=== PATIENT | male | born 1950 | race Caucasian/White ===

== ENCOUNTER 2017-10-20 10:54 | Day surgery (SDC) | payer MEDICARE, BC ==
[~2017-10-20 10:54] MED LIST: Propofol 200 MG/20 ML SDV ONE
[2017-10-20] MEDS ORDERED: Lactated Ringers 1,000 ML IV SCH (11:30)
[2017-10-20] MEDS ORDERED: Sodium Chloride 0.9% 5 ML Syringe FLUSH PRN (11:30)
[2017-10-20] MEDS ORDERED: Propofol 200 MG/20 ML SDV IV ONE (11:54)
--- NOTE | 2017-10-20 11:58 | PCM.PN ---
- General Info Date of Service: 10/20/17 - Review of Systems Systems Review Comment:: 67-year-old male referred for colonoscopy. He has a history of colon polyps with his last colonoscopy being 3 years ago. He is medically stable to proceed today with no recent significant change in his health status. I have discussed the proposed operative procedure with the patient. He agrees to proceed accepting risks. - Patient Data Vitals - Most Recent: Last Vital Signs Temp 97.3 F 10/20/17 11:13 Pulse 67 10/20/17 11:13 Resp 20 10/20/17 11:13 BP 150/103 H 10/20/17 11:13 Pulse Ox 94 L 10/20/17 11:13 Weight - Most Recent: 130.635 kg Med Orders - Current: Current Medications Lactated Ringer's (Ringers, Lactated) 1,000 mls @ 50 mls/hr IV ASDIRECTED [facility] Last Admin: 10/20/17 11:33 Dose: 50 mls/hr Sodium Chloride (Syrex Flush) 5 ml FLUSH Q8HR PRN PRN Reason: Keep Vein Open Discontinued Medications Propofol (Diprivan 20 Ml) Confirm Administered Dose 400 mg .ROUTE .STK-MED ONE Stop: 10/20/17 10:53 - Problem List Review Problem List Initiated/Reviewed/Updated: Yes - My Orders Last 24 Hours: My Active Orders 10/20/17 07:34 Resuscitation Status Routine 10/20/17 11:30 Peripheral IV Care [RC] . DIRECTED Lactated Ringers [Ringers, Lactated] 1,000 ml IV ASDIRECTED Sodium Chloride 0.9% [Syrex Flush] 5 ml FLUSH Q8HR PRN Peripheral IV Insertion Adult [OM.PC] Routine 10/20/17 12:00 Patient to Empty Bladder [RC] ASDIRECTED 10/20/17 12:25 Verify Patient Consent Obtain [RC] ASDIRECTED 10/20/17 Breakfast Nothing Per Oral Diet [DIET] - Assessment Assessment:: History of colon polyps - Plan Plan:: Colonoscopy
--- NOTE | 2017-10-20 12:38 | PCM.OPNOTE ---
- General Post-Op/Procedure Note Date of Surgery/Procedure: 10/20/17 Operative Procedure(s): Colonoscopy with Polypectomy Findings: Small Colon Polyp Moderate Sigmoid Diverticulosis Pre Op Diagnosis: History of Colon Polyps Post-Op Diagnosis: Colon Polyp. Diverticulosis Anesthesia Technique: MAC Primary Surgeon: Rubin Baez Pathology: Descending Colon Polyp Output, Urine Amount: 0 EBL in mLs: 0 Complications: None Condition: Good
[2017-10-20 13:06] VITALS: BP 145/85
--- NOTE | 2017-10-21 01:25 | OR ---
DATE OF SURGERY: 10/20/2017 SURGEON: Rubin Baez MD PREOPERATIVE DIAGNOSIS: History of colon polyps. POSTOPERATIVE DIAGNOSIS: Colon polyp, diverticulosis. OPERATION PERFORMED: Colonoscopy with polypectomy. INDICATIONS FOR SURGERY: A 67-year-old male has a known history of colon polyps and comes today for surveillance colonoscopy. FINDINGS: A single polyp was noted on today's exam. It was in the descending colon 50 cm from the anal verge. The polyp was a sessile polyp 5 mm in size. The patient had a moderate degree of sigmoid diverticulosis which did not appear acutely inflamed or otherwise complicated. The remainder of the colon appeared normal. PROCEDURE: The patient was taken to the operating room. He was given intravenous sedation, and with him in the left lateral decubitus position, digital rectal exam was performed showing no rectal masses. The Olympus colonoscope was inserted into the rectum. Retroflexed examination of the rectal canal was performed. The scope was then carefully advanced under direct visualization up to the descending colon where the above-described polyp was identified. This was removed with a cautery snare and retrieved into a polyp trap. The scope was then further advanced through the remainder of the colon until the cecum was reached. This did require some hand pressure, but eventually the cecum was cannulated and carefully examined. The ileocecal valve and appendiceal orifice were identified. The scope was then slowly withdrawn sequentially re-examining the colonic segments until the entire colon and rectum had been fully examined. The scope was removed and the patient was taken from the operating room in satisfactory condition. ESTIMATED BLOOD LOSS: Zero. COMPLICATIONS: None. PROGNOSIS: Good. /[id number]/MODL
== END 2017-10-20 14:10 | disposition home or self-care (01) ==
LOC: KA.SDS 10:54
PROVIDERS: ATTEND Surgery
DX: Z12.11 Encounter for screening for malignant neoplasm of colon (principal); D12.4 Benign neoplasm of descending colon; K57.30 Diverticulosis of large intestine without perforation or abscess without bleeding; E66.01 Morbid (severe) obesity due to excess calories; Z68.41 Body mass index [BMI] 40.0-44.9, adult; E78.5 Hyperlipidemia, unspecified; N40.0 Benign prostatic hyperplasia without lower urinary tract symptoms; Z86.010 Personal history of colon polyps; Z87.891 Personal history of nicotine dependence; Z79.82 Long term (current) use of aspirin; Z79.899 Other long term (current) drug therapy; Z80.0 Family history of malignant neoplasm of digestive organs
CPT/HCPCS: 00812; 45385; J2704; J7120; 88305

== ENCOUNTER 2018-09-09 01:06 | Emergency (ER) | payer MEDICARE, BC ==
[2018-09-09 01:16] VITALS: BP 159/122
--- NOTE | 2018-09-09 01:19 | EDM.PDOC ---
ED HPI GENERAL MEDICAL PROBLEM - General Chief Complaint: Gastrointestinal Problem Stated Complaint: RECTAL BLEEDING Time Seen by Provider: 09/09/18 01:14 Source of Information: Reports: Patient History Limitations: Reports: No Limitations - History of Present Illness INITIAL COMMENTS - FREE TEXT/NARRATIVE: Patient is a 68-year-old gentleman who presents to the emergency department this morning with a complaint of rectal bleeding. States that 10 days ago He underwent hemorrhoidal banding by Dr. Vicente. Course has been uneventful. Patient states that he is currently on stool softeners, and has had no issues with bleeding. Patient states approximately midnight this evening , he was using the bathroom and stool was described as firm and he noticed blood in the toilet and also when he wiped He noticed bright red blood. Patient decided to proceed to emergency department. Patient denies fever, nausea, vomiting, diarrhea, abdominal pain, or anticoagulation therapy. Onset: Today, Sudden Onset Date: 09/09/18 Onset Time: 00:00 Location: Reports: Other (Rectal) Severity: Mild Improves with: Reports: None Worsens with: Reports: None Associated Symptoms: Reports: No Other Symptoms - Related Data Allergies Allergy/AdvReac Type Severity Reaction Status Date / Time No Known Allergies Allergy Verified 09/09/18 01:12 ED ROS GENERAL - Review of Systems Review Of Systems: ROS reveals no pertinent complaints other than HPI. Constitutional: Reports: No Symptoms HEENT: Reports: No Symptoms Respiratory: Reports: No Symptoms Cardiovascular: Reports: No Symptoms Endocrine: Reports: No Symptoms GI/Abdominal: Reports: Bloody Stool : Reports: No Symptoms Musculoskeletal: Reports: No Symptoms Skin: Reports: No Symptoms Neurological: Reports: No Symptoms Psychiatric: Reports: No Symptoms Hematologic/Lymphatic: Reports: No Symptoms Immunologic: Reports: No Symptoms ED EXAM, GI/ABD - Physical Exam Exam: See Below Exam Limited By: No Limitations General Appearance: Alert, WD/WN, No Apparent Distress Nose: Normal Inspection, No Blood Throat/Mouth: Normal Inspection, Normal Oropharynx, No Airway Compromise Respiratory/Chest: No Respiratory Distress Cardiovascular: Regular Rate, Rhythm, No Murmur GI/Abdominal Exam: Normal Bowel Sounds, Soft, Non-Tender Rectal (Males) Exam: Other (Hemorrhoidal banding site hemostatic.) Back Exam: Normal Inspection. No: CVA Tenderness (L), CVA Tenderness (R) Extremities: Normal Inspection Neurological: Alert, Oriented, Normal Cognition Psychiatric: Normal Affect, Normal Mood Skin Exam: Warm, Dry, Intact, Normal Color, No Rash Course - Re-Assessments/Exams Free Text/Narrative Re-Assessment/Exam: 09/09/18 01:20 Patient afebrile, vital signs stable. Hemostasis maintained and 4 x 4 placed in buttock cleft. Patient instructed procedure if bleeding continues. Patient will follow-up with Dr. Lawson on Thursday and Dr. Vicente next week. Departure - Departure Time of Disposition: 01:22 Disposition: Home, Self-Care 01 Condition: Good Clinical Impression: History of hemorrhoids, Rectal bleeding - Discharge Information Instructions: Rectal Bleeding, [id number], Surgical Procedures for Hemorrhoids, Care After Referrals: Amira Fowler MD [Physician] - Forms: ED Department Discharge Additional Instructions: Follow-up with Dr. Lawson on Thursday. Contact Dr. Gibson's office for appointment next week. Use gauze pads as needed. Continue stool softeners and not to force stool. - Assessment/Plan Assessment:: Hemorrhoidal bleeding Plan: Follow-up with Dr. Lawson
== END 2018-09-09 01:33 | disposition home or self-care (01) ==
LOC: MERGE 01:06 → KA.ED 01:06
DX: K64.8 Other hemorrhoids (principal)
CPT/HCPCS: 99283

== ENCOUNTER 2019-03-31 09:00 | Inpatient (IN) | payer MEDICARE, BC ==
[2019-03-31] MEDS: Furosemide 40 MG/4 ML VIAL IVPUSH SCH ×2 (14:52→16:04)
[2019-03-31 15:06] LABS: ANION GAP 6.8 mmol/L (5-15); CHLORIDE,CL 103 mmol/L (98-115); SODIUM,NA 140 mmol/L (136-145)
[2019-03-31] MEDS: Aspirin 81 MG Tab.EC*PT OWN MED PO SCH (20:38)
[2019-03-31] MEDS: ATORVASTATIN 20 MG PO SCH (20:38)
[2019-03-31] MEDS: Tamsulosin 0.4 MG Cap.ER*PT OWN MED PO SCH (20:38)
[2019-03-31] MEDS ORDERED: atorvaSTATin 10 MG Tab PO SCH (21:00)
[2019-03-31] MEDS ORDERED: Melatonin 3 MG Tab PO PRN (22:00)
[2019-04-01 08:09] LABS: ANION GAP 8.4 mmol/L (5-15); CHLORIDE,CL 101 mmol/L (98-115); SODIUM,NA 140 mmol/L (136-145)
[2019-04-01] MEDS: Furosemide 40 MG/4 ML VIAL IVPUSH SCH ×2 (08:33→17:16)
[2019-04-01] MEDS: Sodium Chloride 0.9% 10 ML Syringe FLUSH PRN ×3 (08:36→17:16)
[2019-04-01] MEDS ORDERED: Aspirin 81 MG Tab.EC PO SCH (09:00)
[2019-04-01] MEDS ORDERED: Tamsulosin 0.4 MG Cap.ER PO SCH (09:00)
[2019-04-01] MEDS: cefTRIAXone 1 GM Vial IVPUSH SCH (10:02)
[2019-04-01] MEDS: Aspirin 81 MG Tab.EC*PT OWN MED PO SCH (22:42)
[2019-04-01] MEDS: Tamsulosin 0.4 MG Cap.ER*PT OWN MED PO SCH (22:42)
[2019-04-01] MEDS: ATORVASTATIN 20 MG PO SCH (22:42)
[2019-04-01] MEDS ORDERED: Zolpidem 5 MG Tab PO ONE (23:00)
[2019-04-02 08:03] LABS: ANION GAP 12.8 mmol/L (5-15); CHLORIDE,CL 100 mmol/L (98-115); SODIUM,NA 143 mmol/L (136-145)
[2019-04-02] MEDS ORDERED: Metolazone 2.5 MG Tab PO ONE (09:35)
[2019-04-02] MEDS: cefTRIAXone 1 GM Vial IVPUSH SCH (09:38)
[2019-04-02] MEDS: Furosemide 40 MG/4 ML VIAL IVPUSH SCH ×2 (09:38→17:07)
[2019-04-02] MEDS: Tamsulosin 0.4 MG Cap.ER*PT OWN MED PO SCH (21:40)
[2019-04-02] MEDS: ATORVASTATIN 20 MG PO SCH (21:40)
[2019-04-02] MEDS: Aspirin 81 MG Tab.EC*PT OWN MED PO SCH (21:40)
[2019-04-02] MEDS: Zolpidem 5 MG Tab PO SCH (23:23)
[2019-04-03 07:56] LABS: ANION GAP 10.9 mmol/L (5-15); CHLORIDE,CL 97 mmol/L (98-115); SODIUM,NA 138 mmol/L (136-145)
[2019-04-03] MEDS: Furosemide 40 MG/4 ML VIAL IVPUSH SCH (08:39)
[2019-04-03] MEDS: cefTRIAXone 1 GM Vial IVPUSH SCH (08:39)
[2019-04-03] MEDS ORDERED: Bumetanide 1 MG/4 ML MDV IVPUSH SCH (09:17)
[2019-04-03] MEDS: Potassium Chloride 20 MEQ Tab.ER PO SCH (10:39)
[2019-04-03] MEDS: Bumetanide 1 MG/4 ML MDV IVPUSH SCH (17:04)
[2019-04-03] MEDS: Aspirin 81 MG Tab.EC*PT OWN MED PO SCH (21:41)
[2019-04-03] MEDS: Tamsulosin 0.4 MG Cap.ER*PT OWN MED PO SCH (21:42)
[2019-04-03] MEDS: ATORVASTATIN 20 MG PO SCH (21:42)
[2019-04-03] MEDS: Zolpidem 5 MG Tab PO SCH (23:30)
[2019-04-04 08:25] LABS: ANION GAP 14.3 mmol/L (5-15); CHLORIDE,CL 93 mmol/L (98-115); SODIUM,NA 141 mmol/L (136-145)
--- NOTE | 2019-04-04 08:56 | PN ---
04/01/2019 PATIENT NAME: RAVI ELLER SUBJECTIVE: This is a 68-year-old male who was admitted to the hospital yesterday with failure of outpatient diuretic therapy for edema of his lower extremities. He has had this lower extremity edema for quite some time. He has actually had a 20-pound weight gain since his last clinic visit. He also had a low oxygen saturation in the clinic of 90%. He has had numerous investigative studies performed to try to determine the etiology of the lower extremity edema, including echocardiogram, venous ultrasound bilateral lower extremities, and CT of the abdomen and pelvis, all which have been normal. The patient is morbidly obese with a BMI of 49. The patient has been treated with intravenous Lasix and has diuresed 5 pounds since admission. Concerning for him as an elevated white blood cell count of 10,000 yesterday and 11,000 today. There is no left shift. He does have erythema of the lower extremities, which is possibly an early cellulitis. LABORATORY DATA: Other lab data from today; CMP shows a normal alkaline phosphatase of 121. Glucose of 110. BUN and creatinine are normal. Liver function tests are basically normal. OBJECTIVE: VITAL SIGNS: On examination, temp is 97.3, pulse 86, respirations 20, blood pressure 127/71, O2 saturation is 92% on room air. SKIN: Warm and dry to touch. HEART: Normal. LUNGS: Normal. ABDOMEN: Obese, nontender. Bowel sounds present in all four quadrants. EXTREMITIES: He does have bilateral pedal edema which is nonpitting in nature. It does extend up to just below the knees. He does not have compression stockings on at this time. He does have erythema of both lower extremities. IMPRESSION: 1. Bilateral lower extremity edema, slightly improved from yesterday with a 5- pound weight gain with IV furosemide. 2. Cellulitis of bilateral lower extremities with the left being greater than the right. He was started on Rocephin 1 g IV daily. PLAN: Possible discharge tomorrow, but more realistically on Thursday. He does have daily labs including CBC and CMP. We will continue to follow. /[id number]/MODL
--- NOTE | 2019-04-04 09:05 | PN ---
04/02/2019 PATIENT NAME: RAVI ELLER SUBJECTIVE: This is a 68-year-old male who was admitted to the hospital on 03/31/2019 with lower extremity edema. This has been a long-standing problem for the patient. He has failed outpatient treatment with oral diuretics. He had had a 20-pound weight gain since his last clinic visit. Noted also that his oxygen saturations in the clinic on the day of admission were 90%. Several investigative studies have been performed to determine the etiology of the lower extremity edema, including an echocardiogram, venous ultrasound of bilateral lower extremities as well as a CT of the abdomen and pelvis, all of which have been normal/negative. The patient is taking a daily aspirin. He has hypercholesterolemia and is taking atorvastatin. He has BPH and is taking tamsulosin. He takes stool softener on a daily basis for periodic constipation. He had trouble sleeping last night. He had tried melatonin the night before and this was ineffective. He was given a one time dose of Ambien 10 mg last night and he said he "slept like a rock." He did have a delusion in the middle of the night that they were doing some dental work in the hallway and ended up coming out into the hallway, but was redirected back to bed without any incident. His lab work today shows a white count of 12.24. His admission white count was 10.54. The etiology of this is very unclear to me. I did start him on 1 g Rocephin on a daily basis starting yesterday. The remainder of his lab results are fairly good. His potassium is holding its own at 4.1. Renal function is good with a BUN of 17 and a creatinine of 0.87 with a GFR of greater than 60. Alkaline phosphatase is elevated at 122. His admission weight was 323 pounds. His weight today is 316 pounds for a net weight loss of 7 pounds. OBJECTIVE: VITAL SIGNS: Temp is 97.4, pulse 100, respirations 20, blood pressure 137/85, oxygen saturation is 90% on room air. SKIN: Warm and dry to touch. CARDIAC: Reveals S1, S2 to be normal. Rate and rhythm are regular. No murmur, click, or gallop is auscultated. LUNGS: Clear. ABDOMEN: Soft, nontender with positive bowel sounds. He is quite obese. EXTREMITIES: He does have edema to the lower extremities, which is possibly just a trace improved from when he was admitted. He does have a positive posterior pedal and dorsalis pedis pulses. The edema is nonpitting. There is a mild erythema of both lower extremities with the left looking worse than the right. IMPRESSION: 1. Lower extremity edema. He has shown little improvement with 40 mg of IV Lasix b.i.d. We will give him a one time dose of Zaroxolyn today to help mobilize some of this lower extremity edema. I did appliance counselor him that I thought that he should be up walking around a little bit more rather than just sitting in a chair. 2. Cellulitis with leukocytosis. I am unclear why his white count is elevated. He has been afebrile. Possibly, this may be a chronic thing. He is covered with Rocephin 1 g IV daily. 3. Hypercholesterolemia, stable. 4. Benign prostatic hyperplasia, stable. 5. Insomnia. He may have Ambien 10 mg daily at bedtime. PLAN: The plan is to keep him at least one more day. He will have to change his admission status from observation to inpatient at this time. /[id number]/MODL
--- NOTE | 2019-04-04 09:05 | PN ---
04/03/2019 PATIENT NAME: RAVI ELLER HISTORY OF PRESENT ILLNESS: This is a 68-year-old male who was admitted to the hospital on 03/31/2019 for lower extremity edema. He has been treated with IV furosemide. The results have been positive, but slow. He received a one time dose of metolazone yesterday with only an additional 2-pound weight loss. He has had a total weight loss of 9 pounds. Echocardiogram, venous ultrasound, and abdomen and pelvis CT performed on an outpatient basis were all normal/negative. His labs have been stable and acceptable with the exception of a white blood cell count elevation, etiology unclear. It was felt that he had some cellulitis associated with the lower extremity edema. He has no ulcerations. He is being treated with ceftriaxone 1 g IV on a daily basis. Potassium has stayed stable at 4.0 on admission and now is down to 3.6. PHYSICAL EXAMINATION: VITAL SIGNS: Temp is 97.3, pulse 85, respirations 20, blood pressure 131/84, O2 saturation is 90% on room air. SKIN: Warm and dry to touch. CARDIAC: Reveals S1, S2 to be normal. Rate and rhythm are regular. No murmur, click, or gallop is auscultated. LUNGS: Clear without rales, wheezes, or rhonchi. ABDOMEN: Soft, obese, nontender. Bowel sounds present in all 4 quadrants. EXTREMITIES: He does have nonpitting edema in his lower extremities with some erythema of both lower extremities with the left being worse than the right. IMPRESSION: 1. Lower extremity edema, somewhat improved, however, slow improvement. I have sent a text message to Dr. Amira Rosado for her suggestion for treatment. I was going to discharge the patient today; however, I do not believe that would be in his best interest. I am thinking possibly of increasing his Lasix to 80 mg b.i.d. and then adding another dose of metolazone today. This will undoubtedly cause hypokalemia, so we will replace potassium. 2. Cellulitis. This seems to be improving slowly as well. We will continue ceftriaxone 1 g IV daily. /[id number]/MODL
[2019-04-04] MEDS: cefTRIAXone 1 GM Vial IVPUSH SCH (09:18)
[2019-04-04] MEDS: Sodium Chloride 0.9% 10 ML Syringe FLUSH PRN ×2 (09:23→11:23)
[2019-04-04] MEDS ORDERED: Trolamine Salicylate/Aloe Vera 10% Crm 85 GM Tube TOP PRN (10:34)
[2019-04-04] MEDS: Potassium Chloride 20 MEQ Tab.ER PO SCH (10:51)
[2019-04-04] MEDS: Bumetanide 1 MG/4 ML MDV IVPUSH SCH ×3 (11:05→17:00)
[2019-04-04] MEDS: Potassium Bicarbonate 25 MEQ Tab.EFF PO SCH ×2 (11:30→21:13)
--- NOTE | 2019-04-04 11:47 | PN ---
04/04/2019 PATIENT NAME: MANE REDDY SUBJECTIVE: Mane Reddy is a 68-year-old male who was admitted to the hospital on 03/31/2019 with lower extremity edema and cellulitis of the lower extremities as well. He has had several investigative studies done prior to admission on an outpatient basis including echocardiogram, venous Doppler studies, and an abdomen and pelvis CT. All of these were normal/negative. Initially, we treated him with Lasix 40 mg b.i.d. intravenously. He really did not respond very effectively at all with the Lasix. We did add a dose of metolazone on 04/02/2019, which only yielded a 2-pound additional weight loss. Yesterday, I consulted with Dr. Amira Fowler, Internal Medicine, regarding any suggestions for alternative medications. She recommended Bumex 5 mg b.i.d. IV. The patient's potassium was 3.6 yesterday and I did expect that it would go lower with the IV Bumex, so he was started on oral potassium supplementation yesterday. His admission weight was 323. Yesterday, his weight was 314, and today, it is 307 for a net weight loss of 7 pounds overnight. The pharmacist has questioned the dose of Bumex. I think since we have gotten such a good result with that, I think we will continue the 5 mg of IV Bumex. We will increase his potassium supplementation to 20 mEq b.i.d. PHYSICAL EXAMINATION: VITAL SIGNS: Temp is 97.6, pulse 97, respirations 22, blood pressure 125/80, O2 saturation is 98% on room air. His weight today is 307 pounds. SKIN: Warm and dry to touch. HEART: Normal. LUNGS: Normal. ABDOMEN: Obese, nontender. Bowel sounds present in all four quadrants. EXTREMITIES: He does have 2+ nonpitting edema in his lower extremities, however, this has improved considerably overnight. IMPRESSION: 1. Bilateral lower extremity edema, improving now with intravenous Bumex. 2. Cellulitis. We will continue ceftriaxone. He does have leukocytosis that is unclear as far as an etiology. The patient has been afebrile the entire time he has been in the hospital. 3. Hypokalemia. This is undoubtedly secondary to diuretics therapy. He will be replaced orally 20 mEq with effervescent potassium b.i.d. PLAN: To discharge tomorrow with oral Bumex and follow closely as an outpatient. /[id number]/MODL
[2019-04-04] MEDS: Zolpidem 5 MG Tab PO SCH (21:12)
[2019-04-04] MEDS: Aspirin 81 MG Tab.EC*PT OWN MED PO SCH (21:13)
[2019-04-04] MEDS: Tamsulosin 0.4 MG Cap.ER*PT OWN MED PO SCH (21:14)
[2019-04-04] MEDS: ATORVASTATIN 20 MG PO SCH (21:14)
[2019-04-05 06:05] VITALS: BP 119/71; PULSE 94
[2019-04-05 07:39] LABS: ANION GAP 8.3 mmol/L (5-15); CHLORIDE,CL 94 mmol/L (98-115); SODIUM,NA 137 mmol/L (136-145)
[2019-04-05] MEDS: Potassium Bicarbonate 25 MEQ Tab.EFF PO SCH (08:52)
[2019-04-05] MEDS: cefTRIAXone 1 GM Vial IVPUSH SCH (08:52)
[2019-04-05] MEDS: Bumetanide 1 MG/4 ML MDV IVPUSH SCH (10:50)
--- NOTE | 2019-04-05 13:47 | DISCH ---
HOSPITAL COURSE: This is a 68-year-old male who was admitted to the hospital on 03/31/2019 with edema in both lower extremities. He was initially treated with Lasix, however, did not have very good results from the Lasix. He was given a one time dose of metolazone on 04/02/2019, which really did not yield too much more weight loss, just 2 pounds. We switched him to Bumex as suggested by my colleague, Dr. Amira Lawson and he did respond extremely well with a 7-pound weight loss after two doses of IV Bumex. His potassium did go from 4.1 to 3.1, as expected. He was placed on potassium supplementation. Yesterday, he only received one dose of IV Bumex. Potassium yesterday afternoon was 3.2. Today is 3.1. He has actually gained 1 pound over the course of the last 24 hours. I believe that this is probably his dry weight at this time. The patient is quite motivated to follow a weight loss diet. He has had a net weight loss of 10 pounds during his hospitalization. He does have leukocytosis, etiology unclear. His admission white count was 12,000. Today is 14,000. He does not have any fever or any other signs of sepsis. He has had cellulitis of the lower extremity secondary to the lower extremity edema. He has been treated with Rocephin as an inpatient but will not need any antibiotics as an outpatient. All other lab values are basically normal. PHYSICAL EXAMINATION: VITAL SIGNS: Temp is 97.7, pulse 94, respirations 20, blood pressure 119/71, O2 saturation is 92% on room air. SKIN: Warm and dry to touch. HEART: Normal. LUNGS: Normal. ABDOMEN: Obese, soft, nontender. Bowel sounds present in all four quadrants. He does have some lower extremity edema, which is greatly improved. There is some erythema, however, this is possibly just the norm for him. The erythema to the lower extremities has improved. He has no ulcerations. FINAL/DISCHARGE DIAGNOSES: 1. Lower extremity edema, which is improved with Bumex. He will be sent home on Bumex 1 mg daily. 2. Cellulitis. This is resolved. He will need no further antibiotics on discharge. 3. Hypokalemia. This is secondary to diuretics undoubtedly. He will be sent home with a prescription for effervescent potassium 25 mEq daily. 4. He does have BPH and will continue on tamsulosin. 5. Obesity. He is motivated to lose weight. He has been okayed for [facility]. 6. Hypercholesterolemia, stable. 7. He is on daily aspirin therapy. The patient was instructed to stop taking furosemide at home. This is replaced with Bumex. He will follow up with me in the clinic on 04/11/2019. At that time, CBC as well as a BMP (basic metabolic panel) will be drawn. We will follow him closely and adjust his Bumex accordingly to the lower extremity edema, being cautious in regard to his potassium. /[id number]/MODL
== END 2019-04-05 11:00 | disposition home or self-care (01) | DRG 948 ==
LOC: KA.MS 09:00 → OBSVTOIN 04-02 09:00
DX: R60.0 Localized edema (principal); L03.116 Cellulitis of left lower limb; E66.01 Morbid (severe) obesity due to excess calories; Z68.42 Body mass index [BMI] 45.0-49.9, adult; L03.115 Cellulitis of right lower limb; E87.6 Hypokalemia; N40.0 Benign prostatic hyperplasia without lower urinary tract symptoms; K59.00 Constipation, unspecified; Z87.891 Personal history of nicotine dependence; E78.00 Pure hypercholesterolemia, unspecified; G47.00 Insomnia, unspecified; D72.829 Elevated white blood cell count, unspecified; Z79.82 Long term (current) use of aspirin; Z79.899 Other long term (current) drug therapy
CPT/HCPCS: 36415; 80048; 80053; 84132; 85025; 96374; 96375; 96376; A9270-GY; G0378; J0696; J1940; J3490

== ENCOUNTER 2021-02-05 08:26 | Day surgery (SDC) | payer MEDICARE, BC ==
[2021-02-05] MEDS ORDERED: Sodium Chloride 0.9% 10 ML Syringe FLUSH PRN (09:00)
[2021-02-05] MEDS: Lactated Ringers 1,000 ML IV SCH (09:40)
[2021-02-05] MEDS ORDERED: Midazolam 1 MG/ML 2 ML SDV ONE (09:53)
[2021-02-05] MEDS ORDERED: Propofol 200 MG/20 ML SDV ONE (09:53)
--- NOTE | 2021-02-05 09:56 | PCM.PN ---
- General Info Date of Service: 02/05/21 - Review of Systems Systems Review Comment:: 70-year-old male with history of colon polyps here for surveillance colonoscopy. He is medically stable to proceed today. His recent history and physical is reviewed and no significant changes are noted. I have discussed the proposed colonoscopy with the patient. Risks and expectations discussed and he agrees to proceed. - Patient Data Med Orders - Current: Current Medications Lactated Ringer's (Ringers, Lactated) 1,000 mls @ 50 mls/hr IV ASDIRECTED [facility]OS Last Admin: 02/05/21 09:40 Dose: 50 mls/hr Documented by: Sodium Chloride (Sodium Chloride 0.9% 10 Ml Syringe) 10 ml FLUSH Q8HR PRN PRN Reason: keep vein open - Problem List Review Problem List Initiated/Reviewed/Updated: Yes - My Orders Last 24 Hours: My Active Orders 02/04/21 14:13 Resuscitation Status Routine 02/05/21 Breakfast Nothing Per Oral Diet [DIET] 02/05/21 09:00 Patient to Empty Bladder [RC] ASDIRECTED Peripheral IV Care [RC] . DIRECTED Lactated Ringers [Ringers, Lactated] 1,000 ml IV ASDIRECTED Sodium Chloride 0.9% [Saline Flush] 10 ml FLUSH Q8HR PRN Peripheral IV Insertion Adult [OM.PC] Routine 02/05/21 09:45 Verify Patient Consent Obtain [RC] ASDIRECTED - Assessment Assessment:: History of colon polyps - Plan Plan:: Colonoscopy
--- NOTE | 2021-02-05 10:31 | PCM.OPNOTE ---
- General Post-Op/Procedure Note Date of Surgery/Procedure: 02/05/21 Operative Procedure(s): Colonoscopy with polypectomy Findings: Small transverse colon polyp Moderate sigmoid diverticulosis Moderate internal hemorrhoids Pre Op Diagnosis: History of colon polyps Post-Op Diagnosis: Colon polyps. Diverticulosis. Hemorrhoids Anesthesia Technique: MAC Primary Surgeon: Rubin Baez Pathology: Colon polyp EBL in mLs: 0 Complications: None Condition: Good
[2021-02-05 10:39] VITALS: BP 152/82; PULSE 65
--- NOTE | 2021-02-05 11:16 | OR ---
DATE OF SURGERY: 02/05/2021 SURGEON: Rubin Baez MD PREOPERATIVE DIAGNOSIS: History of colon polyps. POSTOPERATIVE DIAGNOSIS: Colon polyp, sigmoid diverticulosis, and hemorrhoids. OPERATION PERFORMED: Colonoscopy with polypectomy. INDICATIONS FOR SURGERY: This 70-year-old male has a known history of colon polyps and comes today for surveillance colonoscopy. FINDINGS: A single polyp was noted on today's exam. This is a 5 mm flat polyp in the mid transverse colon. The patient also has a moderate degree of diverticulosis in the sigmoid region, which does not appear to be acutely inflamed or otherwise complicated. He also has moderate-sized internal hemorrhoids. DESCRIPTION OF PROCEDURE: The patient was taken to the operating room. He was given intravenous sedation, and with him in the left lateral decubitus position, digital rectal exam was performed showing no rectal masses. The Olympus colonoscope was inserted into the rectum. Retroflexed examination of the rectal canal was performed. The scope was then carefully advanced under direct visualization through the entire length of the colon until the cecum was reached. Cecal acquisition was confirmed by noting the normal internal cecal anatomy including the appendiceal orifice and the ileocecal valve. After examining the cecum, the scope was slowly withdrawn sequentially re-examining the colonic segments. In the transverse colon, the above-described polyp was identified. This was removed grossly in its entirety with multiple bites of the cold biopsy forceps. The examination was then completed, and after the entire colon and rectum had been fully examined, the scope was removed. The patient was then taken from the operating room in satisfactory condition. ESTIMATED BLOOD LOSS: Zero. COMPLICATIONS: None. PROGNOSIS: Good. /[id number]/MODL
== END 2021-02-05 11:44 | disposition home or self-care (01) ==
LOC: KA.SDS 08:26
PROVIDERS: ATTEND Surgery
DX: Z12.11 Encounter for screening for malignant neoplasm of colon (principal); D12.3 Benign neoplasm of transverse colon; K57.30 Diverticulosis of large intestine without perforation or abscess without bleeding; K64.8 Other hemorrhoids; E66.9 Obesity, unspecified; N40.1 Benign prostatic hyperplasia with lower urinary tract symptoms; R35.1 Nocturia; Z79.82 Long term (current) use of aspirin; Z79.899 Other long term (current) drug therapy; Z98.890 Other specified postprocedural states; Z87.891 Personal history of nicotine dependence; Z68.37 Body mass index [BMI] 37.0-37.9, adult
CPT/HCPCS: 00812; J2250; J2704; J7120

== ENCOUNTER 2024-03-15 07:56 | Day surgery (SDC) | payer MEDICARE ==
[2024-03-15] MEDS ORDERED: Sodium Chloride 0.9% 10 ML Syringe FLUSH PRN (08:00)
[2024-03-15] MEDS: Lactated Ringers 1,000 ML IV SCH (08:25)
[2024-03-15] MEDS ORDERED: Propofol 200 MG/20 ML SDV ONE (08:43)
[2024-03-15] MEDS ORDERED: Midazolam 1 MG/ML 2 ML SDV ONE (08:43)
[2024-03-15 14:28] VITALS: BP 125/72; PULSE 68
== END 2024-03-15 11:28 | disposition home or self-care (01) ==
LOC: KA.SDS 07:56
PROVIDERS: ATTEND Surgery
DX: Z12.11 Encounter for screening for malignant neoplasm of colon (principal); D12.2 Benign neoplasm of ascending colon; K57.30 Diverticulosis of large intestine without perforation or abscess without bleeding; K64.9 Unspecified hemorrhoids; Z86.0100 Personal history of colon polyps, unspecified; E66.9 Obesity, unspecified; Z68.41 Body mass index [BMI] 40.0-44.9, adult; Z79.82 Long term (current) use of aspirin; Z79.899 Other long term (current) drug therapy
CPT/HCPCS: 00811; J2250; J2704; J3490; J7120

== ENCOUNTER 2025-02-01 08:35 | Emergency (ER) | payer MEDICARE ==
[2025-02-01] MEDS ORDERED: Sodium Chloride 0.9% 10 ML Syringe FLUSH PRN (08:52)
[2025-02-01 08:56] LABS: BASOPHILS ABSOLUTE AUTO 0.05 10^3/uL (0.00-0.10); BASOPHILS PERCENT AUTO 0.4 % (0.0-1.0); EOSINOPHILS ABSOLUTE AUTO 0.04 10^3/uL (0.10-0.30); EOSINOPHILS PERCENT AUTO 0.3 % (1.0-3.0); IMMATURE GRAN ABSOLUTE AUTO 0.05 10^3/uL (0.00-0.04); IMMATURE GRAN PERCENT AUTO 0.4 % (0.0-0.4); LYMPHOCYTES ABSOLUTE AUTO 0.78 10^3/uL (1.00-4.00); LYMPHOCYTES PERCENT AUTO 6.6 % (20.0-40.0); MEAN PLATELET VOLUME 9.3 fL (7.4-10.4); MONOCYTES ABSOLUTE AUTO 0.95 10^3/uL (0.10-0.80); MONOCYTES PERCENT AUTO 8.0 % (2.0-8.0); NEUTROPHILS ABSOLUTE AUTO 9.99 10^3/uL (2.50-7.00); NEUTROPHILS PERCENT AUTO 84.3 % (50.0-70.0); PLATELET COUNT,PLT 195 10^3/uL (150-400); RED BLOOD CELL COUNT 4.31 10^6/uL (4.50-6.00); RED CELL DISTRIBUTION WIDTH 13.2 % (11.5-14.5); WHITE BLOOD CELL COUNT,WBC 11.86 10^3/uL (5.00-10.00)
[2025-02-01] MEDS: Lactated Ringers 1,000 ML IV ONE (09:10)
[2025-02-01 09:12] LABS: ALANINE AMINOTRANSFERASE,ALT 417 U/L (14-63); ASPARTATE AMNIOTRANSFERASE,AST 383 U/L (15-37); BILIRUBIN TOTAL 1.9 mg/dL (0.2-1.0); BLOOD UREA NITROGEN,BUN 23 mg/dL (7-18); CARBON DIOXIDE,CO2 29.3 mmol/L (21.0-32.0); CHLORIDE,CL 103 mmol/L (98-107); CREATININE 0.72 mg/dL (0.51-1.17); EST CRCL DRUG DOSING (CG) 84.16 mL/min; GLUCOSE RANDOM 141 mg/dL (70-140); POTASSIUM,K 4.0 mmol/L (3.5-5.1); PROTEIN TOTAL,TP 6.1 g/dL (6.4-8.2); SODIUM,NA 137 mmol/L (136-145)
[2025-02-01 09:17] LABS: ESTIMATED GFR 96 mL/min (>=60)
[2025-02-01 09:21] LABS: APPEARANCE,URINE CLEAR (CLEAR); GLUCOSE,URINE NEGATIVE (NEGATIVE); OCCULT BLOOD,URINE NEGATIVE (NEGATIVE)
[2025-02-01 09:29] LABS: EPITHELIAL CELLS,URINE RARE /LPF
[2025-02-01] MEDS: Lactated Ringers 1,000 ML IV SCH (10:25)
[2025-02-01 13:02] VITALS: BP 146/83; PULSE 82
== END 2025-02-01 11:05 ==
LOC: KA.ED 08:35
DX: K85.10 Biliary acute pancreatitis without necrosis or infection (principal); K80.63 Calculus of gallbladder and bile duct with acute cholecystitis with obstruction; E66.9 Obesity, unspecified; Z79.899 Other long term (current) drug therapy; Z79.82 Long term (current) use of aspirin
CPT/HCPCS: 71045; 80053; 81001; 83690; 84484; 85025; 93010; 96360; 96361; 99284; 99285-25; J7120